=== PATIENT | female | born 1980 | race Asian ===

== ENCOUNTER 2024-12-02 09:44 | Outpatient (REF) | payer BC, SELFPAY ==
[2024-12-02 12:43] LABS: Cholesterol 175 mg/dL (<200); Glucose Fasting 77 mg/dL (60-99); HDL Cholesterol 59 mg/dL (>40); LDL Cholesterol Calculated 110 mg/dL (<100); Triglycerides 34 mg/dL (<150)
[2024-12-02 12:47] LABS: Estimated Average Glucose 91 mg/dL; Hemoglobin A1C 95.4916 umol/L; Hemoglobin A1c % 4.8 % (<6.0); Total Hemoglobin (HGBA1C) 3343.4018 umol/L
== END 2024-12-02 09:45 | disposition home or self-care (01) ==
LOC: HO.WFDLDS 09:44
PROVIDERS: Visit Provider Physician Assistant Medical
DX: E78.5 Hyperlipidemia, unspecified (principal); R73.01 Impaired fasting glucose
CPT/HCPCS: 36415; 80061; 82947; 83036

== ENCOUNTER → 2024-12-12 16:14 | Outpatient (BNVA) | payer BC, SELFPAY | PROVIDERS: PCP Physician Assistant Medical; Visit Provider Physician Assistant Medical | DX: Z00.00 Encounter for general adult medical examination without abnormal findings (principal); J45.909 Unspecified asthma, uncomplicated; E78.5 Hyperlipidemia, unspecified; Z23 Encounter for immunization | CPT/HCPCS: 90471; 90656; 96127 ==

== ENCOUNTER 2025-06-15 08:49 | Outpatient (AMB) | payer BC, SELFPAY ==
--- NOTE | 2025-06-15 08:53 | MHC.PC.OV ---
Vital Signs 06/15/25 08:56 Height 5 ft 2.36 in Weight 120 lb 2 oz BMI 21.7 BP 114/72 Blood Pressure Location Rt brachial Position Sitting Respiration 12 Pulse 90 Pulse Source Pulse Oximeter Temp 98.6 F Temp Source Temporal Artery Scan Pulse Oximetry (%) 99 Oxygen Delivery Method Room Air Intake Visit Reasons: 6 month med review Intake Note: Eunice presents in the office today for a 6 month medication review. Allergies acetaminophen (From Vicodin) Allergy (Intermediate, Verified 06/15/25 08:55) Hives hydrocodone (From Vicodin) Allergy (Intermediate, Verified 06/15/25 08:55) Hives oxycodone (From Percocet) Allergy (Intermediate, Verified 06/15/25 08:55) Hives Medication List - Last Reconciled 06/15/25 by ZANDRA Schneider bupropion HCl SR 100 mg PO QAM dextroamphetamine-amphetamine 10 mg 1 tab PO DAILY fluoxetine 20 mg PO DAILY lisdexamfetamine (Vyvanse) 60 mg PO QAM tirzepatide (weight loss) (Zepbound) 10 mg (0.5 mL) subcut QWEEK 90 days Tobacco use date assessed: 06/15/25 Dental Screening Dental Screen Date: 06/15/25 Did you have a dental visit in the last 12 months?: Yes Did you have a dental problem in the last 6 months where you did not have access to dental care?: No Was dental information given to patient?: Patient has dentist HPI HPI Comments History of Present Illness Details This is a 43-year-old female with a past medical history of elevated blood pressure, increased weight, impaired fasting glucose, anxiety, asthma, hyperlipidemia and attention deficit disorder presenting for follow up. She is currently on Zepbound 10 mg She feels excellent. She says her quality of life has never been better. She is still doing weight training. Her BMI is 21.7 today. She makes sure to incorporate different sources of protein into her diet. She denies side effects on the medication. She had elevated blood pressure, but this normalized since losing weight. Her blood pressure is 114/72 today. Her last hemoglobin A1c was normal at 4.8%. She is followed by a therapist and psychiatrist. She is stable on her medications. She is a busy mother. She has twelve and 16-year-old boys. ROS: Constitutional: No unexplained weight loss, fever, chills, fatigue or night sweats. Eyes: No vision changes, blurry vision, double vision, eye pain, eye redness, eye discharge. Neck: No neck pain, swelling or compressive symptoms. Gastrointestinal: No anorexia, nausea, vomiting or diarrhea. No abdominal pain or blood in stool. Psychiatric:No SI/HI. Physical exam: Constitutional: Alert, in no distress. Neck: Supple, Full range of motion. No lymphadenopathy. No palpable thyroid masses. Respiratory: Clear to auscultation. Cardiovascular: S1 S2 regular. No murmurs. Psychiatric: Normal mood and affect [facility] Medical History (Updated 06/15/25 @ 09:23 by ZANDRA Schneider) Routine physical examination Overweight Lump of right thigh Intermittent constipation IFG (impaired fasting glucose) Hyperlipidemia Elevated blood pressure reading ADD (attention deficit disorder) Asthma Anxiety disorder Surgical History (Updated 12/29/24 @ 10:06 by Aniya Farrell) H/O cervical polypectomy Family History Other Family history not known due to adoption Social History (Updated 06/15/25 @ 08:56 by Judy Doty MA) Housing: House Alcohol intake: current Patient Tobacco Use Status: Former Tobacco user Years Smoked: highschool years e-Cigarette/Vaping Use: Never Used Second Hand Smoke Exposure: No Use of substances other than those prescribed or required for medical reasons: No Substance Use Type: Marijuana service: No Current occupational status: employed Current occupation: executive case account administrator Current occupational exposures/hazards: No Cognitive needs: No Hearing needs: No Vision needs: No Questionnaire Thrive Questionnaire Date Thrive assessed: 12/12/24 I am a: Patient What is your living situation today?: I have a steady place to live Within the past 12 months, did the food you bought not last and you didn't have the money to get more?: Never true Within the past 12 months, did you worry whether your food would run out before you got money to buy more?: Never true Do you have trouble paying for medicines?: No Do you have trouble getting transportation to medical appointments?: No Do you have trouble paying your heating and electricity bill?: No Do you have trouble taking care of your child, family member or friend?: No Do you have trouble with day-to-day activities such as bathing, preparing meals, shopping, managing finances, etc.?: No Are you currently unemployed and looking for a job?: No Are you interested in more education?: No Please select the resources that you would like help with: None Currently or been in a relationship where the following occur: No concerns reported THRIVE Score: 0 RULA-7 AMB Questionnaire RULA-7 Date RULA - 7 assessed: 12/12/24 Source: Developed by Drs. Dino Vivar, Sadia Soto, Bill Woodard and colleagues, with an educational giorgi from [employer]. Physical exam (Primary Care) Vital Signs: Last Vital Signs Temp 98.6 F 06/15/25 08:56 Pulse 90 06/15/25 08:56 Resp 12 06/15/25 08:56 BP 114/72 06/15/25 08:56 Pulse Ox 99 06/15/25 08:56 Oxygen Delivery Method Room Air 06/15/25 08:56 BMI result Body Mass Index 21.7 Tobacco/Smoking Status: Tobacco use Status Tobacco use date assessed 06/15/25 06/15/25 08:58 Patient Tobacco Use Status Former Tobacco user 06/15/25 08:58 e-Cigarette/Vaping Use Never Used 06/15/25 08:58 Thrive Assessment: Date of Thrive Assessment Date Thrive assessed 12/12/24 06/15/25 08:58 Currently or been in a relationship where the following occur: No concerns reported Coding Level of Care Code Est Pt Level 4 (56858) Diagnoses Anxiety disorder F41.9 ADD (attention deficit disorder) F98.8 Pure hypercholesterolemia E78.00 Hyperlipidemia type: pure hypercholesterolemia IFG (impaired fasting glucose) R73.01 Overweight E66.3 Assessment & Plan Assessment & Plan (1) Anxiety disorder: Code(s): F41.9 - Anxiety disorder, unspecified Category: Medical (2) ADD (attention deficit disorder): Code(s): F98.8 - Other specified behavioral and emotional disorders with onset usually occurring in childhood and adolescence Category: Medical (3) Hyperlipidemia: Code(s): E78.5 - Hyperlipidemia, unspecified Category: Medical Qualifiers: Hyperlipidemia type: pure hypercholesterolemia Qualified Code(s): E78.00 - Pure hypercholesterolemia, unspecified (4) IFG (impaired fasting glucose): Code(s): R73.01 - Impaired fasting glucose Category: Medical (5) Overweight: Code(s): E66.3 - Overweight Category: Medical Plan The patient is doing very well on her current medications. She maintains weight loss on Zepbound 10 mg weekly. Refills prescribed. She has no side effects. Hemoglobin A1c, weight, cholesterol and blood pressure normal since taking this medication. She will have labs done prior to her physical exam in December. Continue weight training and lifestyle modifications including a low carbohydrate, low sugar diet. She is followed by behavioral health for ADD and anxiety. Orders: Orders Comprehensive Met. Panel Today E78.00 - Pure hypercholesterolemia, unspecified, J45.909 - Unspecified asthma, uncomplicated, R73.01 - Impaired fasting glucose Complete Blood Count no Diff Today E78.00 - Pure hypercholesterolemia, unspecified, J45.909 - Unspecified asthma, uncomplicated, R73.01 - Impaired fasting glucose Hemoglobin A1c Today E78.00 - Pure hypercholesterolemia, unspecified, J45.909 - Unspecified asthma, uncomplicated, R73.01 - Impaired fasting glucose, R73.9 - Hyperglycemia, unspecified Lipid Panel Today E78.5 - Hyperlipidemia, unspecified, J45.909 - Unspecified asthma, uncomplicated, R73.01 - Impaired fasting glucose Medications: Changed From tirzepatide (weight loss) (Zepbound) 10 mg (0.5 mL) subcut QWEEK 2 mL 5RF To tirzepatide (weight loss) (Zepbound) 10 mg (0.5 mL) subcut QWEEK 6 mL 1RF 90 days
[2025-06-15 08:56] VITALS: BP 114/72; PULSE 90; RESP 12; TEMP 37; O2SAT 99; BMI 21.7
== END 2025-06-15 09:21 | disposition home or self-care (01) ==
LOC: HO.HMCFM 08:51
PROVIDERS: PCP Physician Assistant Medical; Visit Provider Physician Assistant Medical
DX: F41.9 Anxiety disorder, unspecified (principal); F98.8 Other specified behavioral and emotional disorders with onset usually occurring in childhood and adolescence; E78.00 Pure hypercholesterolemia, unspecified; R73.01 Impaired fasting glucose; E66.3 Overweight

== ENCOUNTER 2025-09-25 15:53 | Outpatient (AMB) | payer BC, SELFPAY ==
--- NOTE | 2025-09-25 15:57 | A.OFFPC_ITS ---
Vital Signs 09/25/25 16:01 Height 5 ft 2.36 in Weight 124 lb 8 oz BMI 22.5 BP 106/70 Blood Pressure Location Lt brachial Position Sitting Respiration 13 Pulse 84 Pulse Source Pulse Oximeter Temp 98 F Temp Source Temporal Artery Scan Pulse Oximetry (%) 98 Oxygen Delivery Method Room Air Intake Visit Reasons: discuss alternative weight loss avenues Intake Note: Eunice presents in the office today to discuss weightloss. 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 Is last menstrual period known: Yes Last menstrual period: 09/22/25 Post menopausal: No Patient : No Allergies acetaminophen (From Vicodin) Allergy (Intermediate, Verified 09/25/25 16:00) Hives hydrocodone (From Vicodin) Allergy (Intermediate, Verified 09/25/25 16:00) Hives oxycodone (From Percocet) Allergy (Intermediate, Verified 09/25/25 16:00) Hives Tobacco use date assessed: 09/25/25 Dental Screening Dental Screen Date: 09/25/25 Did you have a dental visit in the last 12 months?: Yes Did you have a dental problem in the last 6 months where you did not have access to dental care?: No Was dental information given to patient?: Patient has dentist HPI HPI Comments History of Present Illness Details This is a 45-year-old female with a past medical history of elevated blood pressure, increased weight, impaired fasting glucose, anxiety, asthma, hyperlipidemia and attention deficit disorder presenting for follow up. She is currently on Zepbound 10 mg. She has been using this as a maintenance dose, so her insurance will not cover 12.5 mg. She has gained 4 lb because she was not able to titrate further despite doing lifestyle modifications. They will only cover the maintenance dose of 15 mg if we increase it. She feels excellent. She says her quality of life has never been better. She is still doing weight training. Her BMI is 22.7 today. She makes sure to incorporate different sources of protein into her diet. She denies side effects on the medication. She had elevated blood pressure, but this normalized since losing weight. Her blood pressure is 106/70. Her last hemoglobin A1c was normal at 4.8%. She is followed by a therapist and psychiatrist. She is stable on her medications. Weight loss has had any significant impact on her mental health. Her quality of life is significantly better. ROS: Constitutional: No unexplained weight loss, fever, chills, fatigue or night sweats. Eyes: No vision changes, blurry vision, double vision, eye pain, eye redness, eye discharge. Neck: No neck pain, swelling or compressive symptoms. Gastrointestinal: No anorexia, nausea, vomiting or diarrhea. No abdominal pain or blood in stool. Psychiatric:No SI/HI. Physical exam: Constitutional: Alert, in no distress. Neck: Supple, Full range of motion. No lymphadenopathy. No palpable thyroid masses. Respiratory: Clear to auscultation. Cardiovascular: S1 S2 regular. No murmurs. Psychiatric: Normal mood and affect [facility] Medical History (Updated 06/15/25 @ 09:23 by ZANDRA Schneider) Routine physical examination Overweight Lump of right thigh Intermittent constipation IFG (impaired fasting glucose) Hyperlipidemia Elevated blood pressure reading ADD (attention deficit disorder) Asthma Anxiety disorder Surgical History (Updated 12/29/24 @ 10:06 by Aniya Farrell) H/O cervical polypectomy Family History Other Family history not known due to adoption Social History (Updated 09/25/25 @ 16:01 by Judy Doty CMA) Housing: House Alcohol intake: current Patient Tobacco Use Status: Former Tobacco user Years Smoked: highschool years e-Cigarette/Vaping Use: Never Used Second Hand Smoke Exposure: No Use of substances other than those prescribed or required for medical reasons: No Substance Use Type: Marijuana Patient : No service: No Current occupational status: employed Current occupation: executive case web site administrator Current occupational exposures/hazards: No Cognitive needs: No Hearing needs: No Vision needs: No Female Reproductive History Menstrual Date of last menstrual period: 09/22/25 Questionnaire PHQ-9 Over the last 2 weeks, how often have you been bothered by any of the following problems? 1. Little interest or pleasure in doing things: not at all 2. Feeling down, depressed, or hopeless: not at all 3. Trouble falling or staying asleep, or sleeping too much: not at all 4. Feeling tired or having little energy: not at all 5. Poor appetite or overeating: not at all 6. Feeling bad about yourself - or that you are a failure or have let yourself or your family down: not at all 7. Trouble concentrating on things, such as reading the newspaper or watching television: not at all 8. Moving or speaking so slowly that other people could have noticed. Or the opposite - being so fidgety or restless that you have been moving around a lot more than usual: not at all 9. Thoughts that you would be better off or of hurting yourself in some way: not at all Total score: 0 Source: Developed by Drs. Dino Vivar, Sadia Soto, Bill Woodard and colleagues, with an educational giorgi from [employer]. Thrive Questionnaire Date Thrive assessed: 09/22/25 I am a: Patient What is your living situation today?: I have a steady place to live Within the past 12 months, did the food you bought not last and you didn't have the money to get more?: Never true Within the past 12 months, did you worry whether your food would run out before you got money to buy more?: Never true Do you have trouble paying for medicines?: No Do you have trouble getting transportation to medical appointments?: No Do you have trouble paying your heating and electricity bill?: No Do you have trouble taking care of your child, family member or friend?: No Do you have trouble with day-to-day activities such as bathing, preparing meals, shopping, managing finances, etc.?: No Are you currently unemployed and looking for a job?: No Are you interested in more education?: No Please select the resources that you would like help with: None Currently or been in a relationship where the following occur: No concerns reported THRIVE Score: 0 AUDIT C Alcohol Use Questionnaire (AUDIT-C) 1. How often do you have a drink containing alcohol?: 2-3 times a week 2. How many drinks containing alcohol do you have on a typical day when you are drinking?: 3 or 4 3. How often do you have six or more drinks on one occasion?: Never Total Score: 4 RULA-7 AMB Questionnaire RULA-7 Date RULA - 7 assessed: 12/12/24 Feeling nervous, anxious, or on edge: 1 = Several days Not being able to stop or control worryin = Not at all Worrying too much about different things: 1 = Several days Trouble relaxin = Not at all Being so restless that it is hard to sit still: 0 = Not at all Becoming easily annoyed or irritable: 0 = Not at all Feeling afraid as if something awful might happen: 0 = Not at all Total RULA-7 score (0-4 normal; 5-9 mild; 10-14 moderate; 15-21 severe): 2 Source: Developed by Drs. Dino Vivar, Sadia Soto, Bill Woodard and colleagues, with an educational giorgi from [employer]. Physical exam (Primary Care) Vital Signs: Last Vital Signs Temp 98 F 09/25/25 16:01 Pulse 84 09/25/25 16:01 Resp 13 09/25/25 16:01 BP 106/70 09/25/25 16:01 Pulse Ox 98 09/25/25 16:01 Oxygen Delivery Method Room Air 09/25/25 16:01 BMI result Body Mass Index 22.5 Tobacco/Smoking Status: Tobacco use Status Tobacco use date assessed 09/25/25 09/25/25 16:03 Patient Tobacco Use Status Former Tobacco user 09/25/25 16:03 e-Cigarette/Vaping Use Never Used 09/25/25 16:03 PHQ-9: PHQ-9 Score PHQ-9: Total score 0 09/25/25 16:34 Thrive Assessment: Date of Thrive Assessment Date Thrive assessed 09/22/25 09/25/25 16:03 Currently or been in a relationship where the following occur: No concerns reported Coding Level of Care Code Est Pt Level 4 (67944) Complex visit Add On [id number] Diagnoses Anxiety disorder F41.9 ADD (attention deficit disorder) F98.8 Pure hypercholesterolemia E78.00 Hyperlipidemia type: pure hypercholesterolemia IFG (impaired fasting glucose) R73.01 Overweight E66.3 Assessment & Plan Assessment & Plan (1) Anxiety disorder: Code(s): F41.9 - Anxiety disorder, unspecified Category: Medical (2) ADD (attention deficit disorder): Code(s): F98.8 - Other specified behavioral and emotional disorders with onset usually occurring in childhood and adolescence Category: Medical (3) Hyperlipidemia: Code(s): E78.5 - Hyperlipidemia, unspecified Category: Medical Qualifiers: Hyperlipidemia type: pure hypercholesterolemia Qualified Code(s): E78.00 - Pure hypercholesterolemia, unspecified (4) IFG (impaired fasting glucose): Code(s): R73.01 - Impaired fasting glucose Category: Medical (5) Overweight: Code(s): E66.3 - Overweight Category: Medical Plan Increase Zepbound to 15 mg weekly. Reviewed potential side effects. Insurance is going to stopped covering it come November 2025. We discussed this today, and she is going to pay [id number] from [employer]. Continue lifestyle modifications. She will have labs done prior to her physical exam in December. Continue weight training and lifestyle modifications including a low carbohydrate, low sugar diet. She is followed by behavioral health for ADD and anxiety. Medications: New tirzepatide (weight loss) (Zepbound) 15 mg (0.5 mL) subcut QWEEK 6 mL 0RF Discontinued tirzepatide (weight loss) (Zepbound) Discontinued Reason: Doctor's Order 12.5 mg (0.5 mL) subcut QWEEK 2 mL 1RF
[2025-09-25 16:01] VITALS: BP 106/70; PULSE 84; RESP 13; TEMP 36.6; O2SAT 98; BMI 22.5
== END 2025-09-26 09:01 | disposition home or self-care (01) ==
LOC: HO.HMCFM 15:55
PROVIDERS: PCP Physician Assistant Medical; Visit Provider Physician Assistant Medical
DX: F41.9 Anxiety disorder, unspecified (principal); F98.8 Other specified behavioral and emotional disorders with onset usually occurring in childhood and adolescence; E78.00 Pure hypercholesterolemia, unspecified; R73.01 Impaired fasting glucose; E66.3 Overweight